=== PATIENT | female | born 1965 | race Two or more races ===

== ENCOUNTER 2019-02-17 08:36 | Emergency (ER) | payer OTHER ==
[2019-02-17 08:43] VITALS: BP 123/72
--- NOTE | 2019-02-17 09:07 | UC ---
Abdominal Pain Female HPI - HPI Summary HPI Summary: Patient presents to urgent care reporting urinary discomfort progressive the last 5 days. Patient states she hasn't burning. Patient states yesterday her urine was pink in color. Patient states she has some spasm that improves after urination. Patient has been taking home remedies and drinking lots of fluids. Patient states she is going out of town tomorrow and so wanted to get checked. Patient denies back pain. No nausea vomiting. Patient is status post a hysterectomy. Patient's medications reviewed this visit. - History of Current Complaint Chief Complaint: UCGU Stated Complaint: URINARY Time Seen by Provider: 02/17/19 08:55 Hx Obtained From: Patient Pain Intensity: 4 Allergies/Adverse Reactions: Allergies Allergy/AdvReac Type Severity Reaction Status Date / Time Penicillins Allergy Intermediate Rash Verified 02/17/19 08:44 amoxicillin Allergy Rash Verified 02/17/19 08:44 Sulfa (Sulfonamide Allergy Rash Verified 02/17/19 08:44 Antibiotics) PMH/Surg Hx/FS Hx/Imm Hx Previously Healthy: Yes - Surgical History Surgical History: Yes Surgery Procedure, Year, and Place: hysterectomy; - Family History Known Family History: Positive: Non-Contributory Negative: Other - Breast CA - Social History Lives: With Family Alcohol Use: Occasionally Alcohol Amount: wine Substance Use Type: None Smoking Status (MU): Never Smoked Tobacco Review of Systems All Other Systems Reviewed And Are Negative: Yes Constitutional: Positive: Negative Genitourinary: Positive: Dysuria, Hematuria, Frequency, Urgency. Negative: Vaginal/Penile Burning, Vaginal/Penile Itching, Vaginal/Penile Discharge Physical Exam - Summary Physical Exam Summary: Vital Signs Reviewed: Yes A+Ox3, no distress Eyes: Conjunctiva Clear, ENT: Hearing grossly normal Neck: Positive: Supple Respiratory: Positive: No respiratory distress, No accessory muscle use + CTA throughout no w/r Cardiovascular: RRR nl s1, s2 no m/r CBT <2 sec abd soft + BS nt/nd no guarding, no distension very mild suprapubic tenderness. No CVA Musculoskeletal Exam: OMALLEY x 4 without difficulty Strength Intact, ROM Intact Neurological: Positive: Alert, + sensation throughout Psychological: Positive: Normal Response To examiner Skin: Positive: no rash, no ecchymosis Triage Information Reviewed: Yes Vital Signs: Initial Vital Signs Temp 97.8 F 02/17/19 08:41 Pulse 97 02/17/19 08:41 Resp 17 02/17/19 08:41 BP 123/72 02/17/19 08:41 Pulse Ox 100 02/17/19 08:41 Abd Pain Female Course/Dx - Course Course Of Treatment: Patient presents with progressive urinary discomfort. Patient reports urgency yesterday had pink in her urine and dysuria. No fevers or chills. No nausea vomiting. No back pain. Patient is not new, moist. On exam patient's vital signs are stable. Patient's urine does have some blood as well as trace leuks. Patient has been drinking lots of fluids. Will start patient on Macrobid. We 'll culture urine. Patient declined Pyridium. We'll give Diflucan in case she develops these infection. Patient comfortable with plan. - Differential Dx/Diagnosis Provider Diagnosis: Dysuria Discharge ED - Sign-Out/Discharge Documenting (check all that apply): Patient Departure All imaging exams completed and their final reports reviewed: No Studies - Discharge Plan Condition: Stable Disposition: HOME Prescriptions: Fluconazole [Diflucan 150 MG (NF)] 150 mg PO ONCE PRN #1 tab PRN Reason: vaginal yeast infection Nitrofurantoin Monohyd/M-Cryst [Macrobid 100 mg Capsule] 100 mg PO BID #14 cap Patient Education Materials: Urinary Tract Infection in Women (ED) Referrals: Shari Metz MD [Primary Care Provider] - Additional Instructions: - stay well hydrated - drink plenty of non-alcoholic, non caffinated beverages - Contact your primary doctor to arrange a follow-up appointment next week. Contact your doctor or return with questions or concerns - Take your antibiotics exactly as prescribed until gone - Okay to alternate ibuprofen (Advil, Motrin) and Tylenol every 3 hours for pain. Take with food - you have been prescribed diflucan - okay to take if you develop a vaginal yeast infection - Call your doctor or return with questions or concerns - Billing Disposition and Condition Condition: STABLE Disposition: Home
== END 2019-02-17 09:41 | disposition home or self-care (01) ==
LOC: UCEAST 08:36
DX: R30.0 Dysuria (principal); R39.89 Other symptoms and signs involving the genitourinary system; R31.9 Hematuria, unspecified; Z88.0 Allergy status to penicillin; Z88.2 Allergy status to sulfonamides
CPT/HCPCS: 81003; 87077; 87086; 87186; 99212; G0463

== ENCOUNTER 2019-07-24 10:04 | Emergency (ER) | payer SELFPAY ==
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
[2019-07-24 10:54] VITALS: BP 145/90
== END 2019-07-24 11:55 | disposition home or self-care (01) ==
LOC: UCEAST 10:04
DX: M54.5 Low back pain (principal); M51.35 Other intervertebral disc degeneration, thoracolumbar region; V89.2XXA Person injured in unspecified motor-vehicle accident, traffic, initial encounter; Y92.410 Unspecified street and highway as the place of occurrence of the external cause; I10 Essential (primary) hypertension; Z79.899 Other long term (current) drug therapy; Z88.0 Allergy status to penicillin; Z88.2 Allergy status to sulfonamides
CPT/HCPCS: 72128; 72131; 99211; G0463